=== PATIENT | female | born 1990 | race Caucasian/White ===

== ENCOUNTER 2020-06-20 06:12 | Day surgery (SDC) | payer BC, SELFPAY ==
[2020-06-16 12:47] LABS: HCG,QUAL RESULT NEGATIVE (NEGATIVE)
[~2020-06-20] VITALS: Ht 165.1 cm; Wt 63.5 kg
[2020-06-20] MEDS ORDERED: SUGAMMADEX SODIUM 200 MG/2 ML VIAL IV ONE (07:30)
[2020-06-20] MEDS ORDERED: KETOROLAC TROMETHAMINE 30 MG VIAL IVP ONE (07:30)
[2020-06-20] MEDS ORDERED: ROCURONIUM BROMIDE 10 MG/ML (ZEMURON) IV ONE (07:30)
[2020-06-20] MEDS ORDERED: ISOFLURANE 15 MIN GAS INH ONE (07:30)
[2020-06-20] MEDS ORDERED: fentaNYL CITRATE 250 MCG/5 ML AMP IV ONE (07:30)
[2020-06-20] MEDS ORDERED: NS IRRIG SOLN 1000 ML IR ONE (07:30)
[2020-06-20] MEDS ORDERED: WATER FOR IRRIGATION,STERILE 1,000 ML IRRIG.SOLN IR ONE (07:30)
[2020-06-20] MEDS ORDERED: NS 1000 ML IV.SOLN IV ONE ×2 (07:30)
[2020-06-20] MEDS ORDERED: DEXAMETHASONE SOD PHOSPHATE 4 MG/ML VIAL IVP ONE (07:30)
[2020-06-20] MEDS ORDERED: LR 500 ML IV.SOLN IV ONE (07:30)
[2020-06-20] MEDS ORDERED: LIDOCAINE/EPI 1% 1:100000 20 ML VIAL INJ ONE (07:30)
[2020-06-20] MEDS ORDERED: OXYMETAZOLINE HCL 0.05% NASAL SPRAY NS ONE (07:30)
[2020-06-20] MEDS ORDERED: LIDOCAINE 2%, 20 ML MDV INJ ONE (07:30)
[2020-06-20] MEDS ORDERED: PROPOFOL 200MG/ 20ML VIAL (DIPRIVAN) IV ONE (07:30)
[2020-06-20] MEDS ORDERED: ONDANSETRON HCL 4 MG/2 ML VIAL IVP ONE (07:30)
[2020-06-20 07:36] LABS: HCG,QUAL RESULT NEGATIVE (NEGATIVE)
[2020-06-20] MEDS ORDERED: ONDANSETRON HCL 4 MG/2 ML VIAL IVP PRN (08:30)
[2020-06-20] MEDS ORDERED: HYDROmorphone 1 MG INJ. 1 MG/ML AMPUL IVP PRN ×2 (08:30)
[2020-06-20] MEDS ORDERED: METOCLOPRAMIDE HCL 10 MG/2 ML VIAL IVP PRN (08:30)
[2020-06-20] MEDS ORDERED: hydrALAZINE HCL 20 MG/ML VIAL IVP PRN (08:30)
[2020-06-20] MEDS ORDERED: LR 1,000 ML IV SCH (08:30)
[2020-06-20] MEDS ORDERED: MEPERIDINE HCL/PF 25 MG/ML DISP.SYRIN IVP PRN (08:30)
[2020-06-20] MEDS ORDERED: HYDROmorphone 1 MG INJ. 1 MG/ML AMPUL ONE (11:08)
[2020-06-20 11:20] VITALS: BP_SYST 116
== END 2020-06-20 11:20 | disposition home or self-care (01) ==
LOC: SDS 06:12 → SMU 06:12 → SDS 11:20 → EDSTATUS 12:06
PROVIDERS: ATTEND Otolaryngology
DX: J34.89 Other specified disorders of nose and nasal sinuses (principal); J32.4 Chronic pansinusitis; D38.5 Neoplasm of uncertain behavior of other respiratory organs; J34.2 Deviated nasal septum; R09.81 Nasal congestion; Z87.891 Personal history of nicotine dependence; Z88.5 Allergy status to narcotic agent; Z79.899 Other long term (current) drug therapy; Z20.828 Contact with and (suspected) exposure to other viral communicable diseases
CPT/HCPCS: 30140; 30520; 31254; 31256; 31296; 84703 ×2; 88305; 88311; C1726; J1170; U0003; C9399; J1100; J1885; J2001; J2405; J2704; J3010; J7030; J7120